=== PATIENT | male | born 1945 | race Two or more races ===

== ENCOUNTER 2019-01-17 13:45 | Inpatient (IN) | payer OTHER ==
[~2019-01-17] VITALS: Ht 170.2 cm; Wt 71.7 kg
[2019-01-17] MEDS ORDERED: ALDACTONE25 MG PO (16:11)
[2019-01-17] MEDS ORDERED: CARVEDILOL6.25 MG PO (16:12)
[2019-01-17] MEDS ORDERED: NIFE60TA3 PO (16:12)
[2019-01-17] MEDS ORDERED: HYDROCHLOROTH12.5 M1 PO (16:13)
[2019-01-17] MEDS ORDERED: LIPITOR20 MG PO (16:13)
== END 2019-02-01 17:55 | disposition home or self-care (01) | DRG 329 ==
LOC: SURH 01-23 05:49 → O/R 01-23 05:49 → SURH 01-23 10:00
PROVIDERS: ADMIT Colon & Rectal Surgery
PROC: 07TC4ZZ Resection of Pelvis Lymphatic, Percutaneous Endoscopic Approach (ICD-10-PCS; 2019-01-23)
PROC: 0DTP4ZZ Resection of Rectum, Percutaneous Endoscopic Approach (ICD-10-PCS; 2019-01-23)
PROC: 0DJD8ZZ Inspection of Lower Intestinal Tract, Via Natural or Artificial Opening Endoscopic (ICD-10-PCS; 2019-01-23)
PROC: 0DTN4ZZ Resection of Sigmoid Colon, Percutaneous Endoscopic Approach (ICD-10-PCS; principal; 2019-01-23 10:00)
PROC: 0D1B4Z4 Bypass Ileum to Cutaneous, Percutaneous Endoscopic Approach (ICD-10-PCS; 2019-01-26)
PROC: 4A033R1 Measurement of Arterial Saturation, Peripheral, Percutaneous Approach (ICD-10-PCS; 2019-01-26)
PROC: 3E0F7GC Introduction of Other Therapeutic Substance into Respiratory Tract, Via Natural or Artificial Opening (ICD-10-PCS; 2019-01-28)
PROC: 0DH67UZ Insertion of Feeding Device into Stomach, Via Natural or Artificial Opening (ICD-10-PCS; 2019-01-29)
DX: C20 Malignant neoplasm of rectum (principal); K65.1 Peritoneal abscess; K40.30 Unilateral inguinal hernia, with obstruction, without gangrene, not specified as recurrent; K92.1 Melena; E44.1 Mild protein-calorie malnutrition; J98.11 Atelectasis; K56.51 Intestinal adhesions [bands], with partial obstruction; K63.3 Ulcer of intestine; R59.0 Localized enlarged lymph nodes; R09.02 Hypoxemia; I10 Essential (primary) hypertension; R14.0 Abdominal distension (gaseous); Z85.048 Personal history of other malignant neoplasm of rectum, rectosigmoid junction, and anus

== ENCOUNTER 2019-07-04 10:08 | Outpatient (CLI) | payer OTHER ==
[~2019-07-04 10:08] MED LIST: ALDACTONE25 MG PO; CARVEDILOL6.25 MG PO; HYDROCHLOROTH12.5 M1 PO; LIPITOR20 MG PO; NIFE60TA3 PO
== END 2019-07-04 17:00 | disposition home or self-care (01) ==
LOC: RX STUDY 10:08
DX: C20 Malignant neoplasm of rectum (principal)

== ENCOUNTER 2019-07-06 11:00 | Inpatient (IN) | payer OTHER ==
[~2019-07-06] VITALS: Ht 170.2 cm; Wt 63.5 kg
== END 2019-07-13 16:36 | disposition home or self-care (01) | DRG 330 ==
LOC: ADM 11:00 → EDSTATUS 11:00 → O/R 07-11 05:35 → SURG 07-11 05:35 → SURH 07-11 11:00 → SURG 07-11 14:55
PROVIDERS: ADMIT Colon & Rectal Surgery
PROC: 0DQB4ZZ Repair Ileum, Percutaneous Endoscopic Approach (ICD-10-PCS; principal; 2019-07-11 11:30)
DX: Z43.2 Encounter for attention to ileostomy (principal); C20 Malignant neoplasm of rectum; K92.1 Melena; I10 Essential (primary) hypertension

== ENCOUNTER 2020-04-04 07:51 | Day surgery (SDC) | payer OTHER | END 2020-04-04 15:30 | disposition home or self-care (01) | LOC: AMB-ENDOS 07:51 | PROVIDERS: ATTEND Colon & Rectal Surgery | DX: K62.89 Other specified diseases of anus and rectum (principal); K64.2 Third degree hemorrhoids ==

== ENCOUNTER 2021-05-15 06:20 | Day surgery (SDC) | payer OTHER | END 2021-05-15 10:25 | disposition home or self-care (01) | LOC: AMB-ENDOS 06:20 | PROVIDERS: ATTEND Colon & Rectal Surgery | DX: K62.89 Other specified diseases of anus and rectum (principal); K64.0 First degree hemorrhoids; Z20.822 Contact with and (suspected) exposure to COVID-19 ==